=== PATIENT | male | born 1955 | race Caucasian/White ===

== ENCOUNTER 2022-03-05 13:03 | Outpatient (CLI) | payer OTHER, SELFPAY ==
[2022-03-05 14:04] LABS: Albumin* 4.5 g/dL (3.3-5.0)
[2022-03-05 14:05] LABS: Chloride* 103 mmol/L (96-114); Sodium* 143 mmol/L (135-149)
[2022-03-05 14:07] LABS: Carbon Dioxide* 28 mmol/L (20-32); Cholesterol* 107 mg/dL (90-199); Creatinine* 1.2 mg/dL (0.5-1.5); Estimated Glomerular Filt Rate 66 ml/min; Total Protein* 7.2 g/dL (6.0-8.3)
[2022-03-05 14:08] LABS: Alanine Aminotransferase* 27 U/L (4-50); Alkaline Phosphatase* 69 U/L (40-150); Aspartate Amino Transferase* 31 U/L (12-35); Blood Urea Nitrogen* 18 mg/dL (7-30); Calcium* 9.5 mg/dL (8.4-10.6); Glucose* 108 mg/dL (60-115); HDL Cholesterol* 36 mg/dL (>=40); LDL Cholesterol Calculated 44 mg/dL (<100); Triglycerides* 137 mg/dL (40-149)
[2022-03-05 14:26] LABS: PSA Screen* 3.97 ng/mL (0.10-4.00)
== END 2022-03-05 13:04 | disposition home or self-care (01) ==
PROVIDERS: PCP Physician Assistant Medical; Visit Provider Physician Assistant Medical
DX: Z00.00 Encounter for general adult medical examination without abnormal findings (principal); E78.5 Hyperlipidemia, unspecified; I10 Essential (primary) hypertension; R73.03 Prediabetes; Z12.5 Encounter for screening for malignant neoplasm of prostate
CPT/HCPCS: 80053; 80061; 84153

== ENCOUNTER 2022-12-01 13:19 | Emergency (ER) | payer OTHER, SELFPAY ==
[2022-12-01 13:46] VITALS: BP 160/82; PULSE 82; RESP 16; TEMP 36.6; O2SAT 97; BMI 31.6
[2022-12-01 15:25] LABS: Chloride* 103 mmol/L (96-114)
[2022-12-01 15:26] LABS: Potassium* 3.9 mmol/L (3.6-5.1); Sodium* 140 mmol/L (135-149)
[2022-12-01 15:28] LABS: Creatinine* 1.1 mg/dL (0.5-1.5); Est. Creatinine Clearance* 67.29; Estimated Glomerular Filt Rate 74 ml/min
[2022-12-01 15:29] LABS: Blood Urea Nitrogen* 24 mg/dL (7-30); Carbon Dioxide* 28 mmol/L (20-32)
[2022-12-01 15:30] LABS: Calcium* 9.9 mg/dL (8.4-10.6); Glucose* 133 mg/dL (60-115)
[2022-12-01 15:33] LABS: C Reactive Protein* < 0.5 mg/dL (0.5-1.0)
[2022-12-01 15:55] LABS: Troponin I* < 0.01 ng/mL (0.01-0.04)
--- NOTE | 2022-12-01 19:30 | ED_ITS ---
HPI - General Adult General Chief complaint: Jaw Injury/Pain Stated complaint: headache, left side jaw pain Time Seen by Provider: 12/01/22 14:17 History of Present Illness HPI narrative: Has had left sided jaw pain gradually over the last couple of weeks. Went to dentist last week and they did an xray and didn't find anything. Woke up with a headache today and went to eat and left jaw was very painful- now has resolved. Still has headache. Has not taken any tylenol or ibuprofen. Denies dizziness, chest pain, shortness of breath. 67-year-old man presenting with spouse to the emergency department with concern of some jaw area pain. One week ago had been having some intermittent pain, he describes a sensitivity, in the left lower jaw. Was evaluated by the dentist including imaging and no clear cause was identified. He is not having any neck pain. There has been no trauma. Is not describing any sensitivity otherwise. Today during breakfast had severe onset of pain in the mid lower mandible lasting about 20 minutes. Some headache now. Concern by spouse in particular that this might be cardiac in origin. Essentially pain-free now other than the headache. There was no lightheadedness or chest pain or shortness of breath with his event. No diaphoresis. No palpitations noted. No cardiac history Related Data Home Medications Medication Instructions Recorded Confirmed aspirin 81 mg tablet,delayed 81 mg PO QDAY 03/06/22 12/01/22 release Previous Rx's Medication Instructions Recorded atorvastatin 20 mg tablet 20 mg PO .hs #90 tabs 03/06/22 lisinopril 20 mg tablet 20 mg PO DAILY #90 tabs 03/06/22 metformin 500 mg tablet 500 mg PO .dailywmeal #90 tabs 06/12/22 Allergies Allergy/AdvReac Type Severity Reaction Status Date / Time No Known Drug Allergies Allergy Verified 12/01/22 13:45 Review of Systems Status of ROS: Reports: 6 or more systems reviewed and unremarkable except as noted in History and below PFSH PFS Surgical History History of colonoscopy ?Z98.890 - Other specified postprocedural states (ICD-10) History of vasectomy ?Z98.52 - Vasectomy status (ICD-10) Family History (Updated 03/05/22 @ 10:33 by Marija Fenton) Mother Breast cancer Lung cancer Sister Breast cancer Paternal Grandfather Diabetes Social History Narrative: consumes alcohol occasionally, no illicit drug use, nonsmoker Smoking Status: Never smoker How often do you have a drink containing alcohol: monthly or less AUDIT-C Alcohol total score: 1 Non-prescribed substance use: denies use Exam Narrative: Exam Narrative: Very pleasant. Of good energy. Skin is warm and dry. Head and face looks atraumatic. There is no external swelling appreciated. I can not clearly reproduce pain to palpation over the jaw. Neck is supple without lymphadenopathy. No reproduction of pain with movement of the neck. There is no TMJ area pain. Ear canals and TMs are unremarkable. There is no tenderness to palpation around the neck. Oropharynx shows dentition to be in good repair. There is no swelling here either. No tenderness to percussion. Lungs are clear. Heart in a regular rate and rhythm. No MR G. Extremities are well perfused. Without notable edema. Const: Vital Signs, click to edit/add: Vital Signs - 24 hr 12/01/22 13:46 Temperature 97.8 F Pulse Rate [Pulse Oximeter] 82 Respiratory Rate 16 Blood Pressure [Ri ght Upper Arm] 160/82 H Pulse Oximetry 97 Oxygen Delivery Me thod Room Air Documenting provider has reviewed patient's vital signs: yes Course Vital Signs Vital signs: Initial Vital Signs Temperature 97.8 F 12/01/22 13:46 Temperature Source Temporal Artery Scan 12/01/22 13:46 Pulse Rate 82 12/01/22 13:46 Pulse Rhythm Regular 12/01/22 13:46 Pulse Strength 3+ Normal 12/01/22 13:46 Respiratory Rate 16 12/01/22 13:46 Blood Pressure 160/82 H 12/01/22 13:46 Blood Pressure Mean 108 H 12/01/22 13:46 Blood Pressure Position Sitting 12/01/22 13:46 Pulse Oximetry 97 12/01/22 13:46 Oxygen Delivery Method Room Air 12/01/22 13:46 Vital Signs Temperature 97.8 F 12/01/22 13:46 Pulse Rate 82 12/01/22 13:46 Respiratory Rate 16 12/01/22 13:46 Blood Pressure 160/82 H 12/01/22 13:46 Pulse Oximetry 97 12/01/22 13:46 Oxygen Delivery Method Room Air 12/01/22 13:46 Temperature 97.8 F 12/01/22 13:46 Pulse Rate 82 12/01/22 13:46 Respiratory Rate 16 12/01/22 13:46 Blood Pressure 160/82 H 12/01/22 13:46 Pulse Oximetry 97 12/01/22 13:46 Oxygen Delivery Method Room Air 12/01/22 13:46 Medical Decision Making MDM Narrative Medical decision making narrative: We can certainly evaluate for cardiac etiology. This does seems to be unclear spasms of pain at this point. Could be radicular from some other impingement but they can not identify that at this time. Labs and EKG are reassuring. Lab Data Lab results reviewed: Yes I reviewed the patient's lab results Labs: Lab Results 12/01/22 Range/Units 15:00 Sodium 140 (135-149) mmol/L Potassium 3.9 (3.6-5.1) mmol/L Chloride 103 (96-114) mmol/L Carbon Dioxide 28 (20-32) mmol/L BUN 24 (7-30) mg/dL Creatinine 1.1 (0.5-1.5) mg/dL Estimated Creat Clear 67.29 Estimated GFR 74 ml/min Glucose 133 H (60-115) mg/dL Calcium 9.9 (8.4-10.6) mg/dL Troponin I < 0.01 L (0.01-0.04) ng/mL C-Reactive Protein < 0.5 L (0.5-1.0) mg/dL POC Troponin I 0.00 L (0.01-0.04) ng/ml ECG Data Attestation: I personally reviewed and interpreted this ECG as follows: (Normal sinus rhythm incomplete right bundle with a rate of 71) Discharge Plan Discharge Clinical Impression: Pain in lower jaw Patient Disposition: Home w/ Parent or Adult Condition: Stable Additional Instructions: Have not been able to identify any cardiac event at least in the last 7+ hours. I suppose watchful waiting is our next step. You could certainly follow-up with your primary care provider to arrange for further cardiac evaluation if your further concerns in this regard. Otherwise would [facility] back around to your dentist for another look. Certainly welcome to return here for increasing and persistent pain, chest pain, associated nausea, shortness of breath, lightheadedness, diaphoresis. Prescriptions: No Action aspirin 81 mg tablet,delayed release (DR/EC) 81 mg PO QDAY lisinopril 20 mg tablet 20 mg PO DAILY Qty: 90 3RF atorvastatin 20 mg tablet 20 mg PO .hs Qty: 90 3RF metformin 500 mg tablet 500 mg PO .dailywmeal Qty: 90 1RF Follow Up/Referrals: Shaun Hanley PA-C [Primary Care Provider] - Stand Alone Forms: [employer] Info Instructions
== END 2022-12-01 16:13 | disposition home or self-care (01) ==
PROVIDERS: Emergency Provider Family Medicine; PCP Physician Assistant Medical
DX: R68.84 Jaw pain (principal)
CPT/HCPCS: 36415; 80048; 84484; 86140; 93005; 99283; 99284

== ENCOUNTER 2023-02-26 13:18 | Outpatient (CLI) | payer OTHER, SELFPAY | END 2023-02-26 13:19 | disposition home or self-care (01) | PROVIDERS: PCP Physician Assistant Medical; Visit Provider Physician Assistant Medical | DX: E11.9 Type 2 diabetes mellitus without complications (principal); E78.5 Hyperlipidemia, unspecified; I10 Essential (primary) hypertension; R97.20 Elevated prostate specific antigen [PSA] | CPT/HCPCS: 80053; 80061; 82043; 82570; 84153 ==

== ENCOUNTER 2023-06-21 14:30 | Outpatient (RCR) | payer OTHER, SELFPAY ==
--- NOTE | 2023-06-09 09:24 | PT.OPE ---
PT [place] [facility] Eval PT [facility] Outpatient Eval Start: 06/07/23 17:02 Freq: Status: Active Protocol: Document 06/07/23 17:02 LAMIN (Rec: 06/07/23 17:06 LAMIN [id number]) E-signed By Junior Licea DPT, MS Physical Therapy Outpatient Evaluation Insurance Information Recert Due Date 09/05/23 Insurance Name Other; See Comments Insurance Information/Comments [employer] Medical Diagnosis Cervical radiculitis Treating Diagnosis Decreased B CS flexibility, L- sided CS radicular sxs, posture dysfunction, decreased deep neck flexor, B periscapular and UE strength. Subjective Subjective Patient presents to PT with c/ o acute onset of L-sided neck/ upper back pain and occasional radicular sxs of insidious origin 3 weeks ago. Believes extended time fwd bending doing a large puzzle with his combined with frequent lifting of his grandchildren may have led to sxs. Describes sxs as a sharp stabbing sensation with occasional radiating, burning sxs down to his forearm. Sxs have improved since his MD visit on 05/27/23 but he wants to avoid a recurrence or worsening of sxs prior to his trip to the [facility]. Sxs now primarily a dull ache and occasionally zinging pain at the base of his L neck. Denies hx of CS pain. PMH includes DM-II and HTN. AGGR factors: turning head, driving , extended fwd bending, sitting >30 min. ALLEV factors : heat, advil. Pt hopes to decrease sxs to improve tolerance to driving, work duties and yardwork. 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 Limited B (L>R) CS AROM in all directions with significant L CS muscular tightness and hypertonicity. Stress, PTSD and limited sleep also playing a prominent role in pt?s sxs. 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 Good response to MT, stretching and strengthening exercises with decreased neck and improved B CS rot AROM following. He will benefit greatly from continued skilled PT intervention to address these limitations. Primary Functional Limitations Sleeping, turning head, reading, driving, sitting >30 min. Plan of Care Rehabilitation Potential Excellent Physical Therapy Goals Short-term goals to be completed in 4 weeks: 1. Pt will report >50% improvement in HAs for a given week to improve ludy to daily and work activities 2. Pt will report improved quality of sleep waking <2x per night due to neck pain or HAs. 3. Pt will display good quality of sitting posture for >2 consecutive visits to improve tolerance to work duties. Long-term goals to be competed in 10 weeks 1. Patient will be independent and compliant with HEP and self management of symptoms 2. Patient will improve B shoulder ER, IR, mid and lower trap strength of 5/5 to improve tolerance to household and yardwork activities. 3. Pt will display improved B CS rot AROM >67 deg to improve tolerance to and safety with driving. 4. Pt will report >50% improvement in NDI questionnaire to significantly improve ludy to daily activities. Coordination/Communication With Referral Source Treatment Plan/Direct Interventions Joint Mobilization,Manual Therapy,Therapeutic Exercises Frequency/Duration 1-2x per week for 6-10 visits, decreasing visit frequency as able. Patient Will Be Discharged From Therapy Completion of LTG(s),Skills Plateau,Independent w/HEP, Independently Progressing Evaluation Billing Untimed Code Treatment Minutes 24 Complexity Moderate Certification Information Initial Certification Date 06/07/23 Ending Certification Date 09/05/23 Provider Signature Shows Agreement With POC & Medical Necessity Physician Signature & Date Requested Please Sign/Date Here Physician Comment/Change : Physician NPI Number #
== END 2023-10-19 23:59 | disposition home or self-care (01) ==
PROVIDERS: PCP Physician Assistant Medical; Visit Provider Family Medicine
DX: M54.12 Radiculopathy, cervical region (principal); Z51.89 Encounter for other specified aftercare
CPT/HCPCS: 97110; 97140; 97162

== ENCOUNTER 2023-08-25 15:34 | Outpatient (CLI) | payer OTHER, SELFPAY | END 2023-08-25 15:35 | disposition home or self-care (01) | LOC: NFLDREF 08-26 06:38 | PROVIDERS: PCP Physician Assistant Medical; Referring Provider Physician Assistant Medical; Visit Provider Physician Assistant Medical | DX: R97.20 Elevated prostate specific antigen [PSA] (principal) | CPT/HCPCS: G0103 ==

== ENCOUNTER 2024-04-17 07:50 | Outpatient (CLI) | payer OTHER, SELFPAY | END 2024-04-17 07:51 | disposition home or self-care (01) | LOC: NFLDREF 17:50 | PROVIDERS: PCP Physician Assistant Medical; Referring Provider Physician Assistant Medical; Visit Provider Physician Assistant Medical | DX: E78.2 Mixed hyperlipidemia (principal); E11.9 Type 2 diabetes mellitus without complications; I10 Essential (primary) hypertension; Z79.84 Long term (current) use of oral hypoglycemic drugs; Z12.5 Encounter for screening for malignant neoplasm of prostate; Z13.29 Encounter for screening for other suspected endocrine disorder | CPT/HCPCS: 80053; 80061; 82043; 82570; 84443; G0103 ==

== ENCOUNTER 2024-11-06 07:31 | Outpatient (CLI) | payer OTHER, SELFPAY | END 2024-11-06 07:32 | disposition home or self-care (01) | LOC: NFLDREF 11-08 02:04 | PROVIDERS: PCP Physician Assistant Medical; Referring Provider Physician Assistant Medical; Visit Provider Physician Assistant Medical | DX: I10 Essential (primary) hypertension (principal); E11.9 Type 2 diabetes mellitus without complications; E78.2 Mixed hyperlipidemia | CPT/HCPCS: 80053 ==